=== PATIENT | male | born 1955 | race Two or more races ===

== ENCOUNTER 2018-01-19 09:51 | Inpatient (IN) | payer OTHER ==
[2018-01-16 15:07] VITALS: BP 116/82
[2018-01-16 15:29] LABS: BASOPHILS # (AUTO) 0.02 x10^3/uL (0-0.1); BASOPHILS % (AUTO) 0 % (0-1); EOSINOPHILS # (AUTO) 0.07 x10^3/uL (0-0.4); EOSINOPHILS % (AUTO) 1 % (1-7); LYMPHOCYTES # (AUTO) 1.89 x10^3/uL (1-3.4); LYMPHOCYTES % (AUTO) 35 % (22-44); MD NO; MEAN CORPUSCULAR HEMOGLOBIN 33.9 pg (27.5-34.5); MEAN CORPUSCULAR HGB CONC 34.6 g/dL (33.2-36.2); MEAN CORPUSCULAR VOLUME 98.2 fL (81-97); MEAN PLATELET VOLUME 7.7 fL (7.4-10.4); MONOCYTES # (AUTO) 0.48 x10^3/uL (0.2-0.8); MONOCYTES % (AUTO) 9 % (2-9); NEUTROPHILS % (AUTO) 54 % (42-75); PLATELET COUNT 188 x10^3/uL (130-400); RED BLOOD COUNT 4.55 x10^6/uL (4.38-5.82); RED CELL DISTRIBUTION WIDTH 13.3 % (9.4-14.8)
[2018-01-16 15:38] LABS: ALANINE AMINOTRANSFERASE 136 U/L (12-78); ANION GAP 6 mmol/L (5-15); CALCIUM 8.9 mg/dL (8.5-10.1); CHLORIDE 107 mmol/L (98-107); CREATININE 0.89 mg/dL (0.7-1.3)
[2018-01-16 15:40] LABS: ALKALINE PHOSPHATASE 81 U/L (45-117); BILIRUBIN,TOTAL 0.6 mg/dL (0.2-1.0); TOTAL PROTEIN 7.9 g/dL (6.4-8.2)
[2018-01-16 16:02] LABS: MICROSCOPIC NOT IND
[~2018-01-19] VITALS: Ht 170.2 cm; Wt 69.8 kg
[~2018-01-19 09:51] MED LIST: BUPIVACAINE/PF-EPI 0.25% 1:200K ONE; MULT-658 PO; THROMBIN 5,000 UNIT VIAL TP ONE; lisinopril PO
[2018-01-19] MEDS ORDERED: LACTATED RINGERS 1,000 ML IV SCH (10:19)
[2018-01-19] MEDS ORDERED: OxyconTIN ER 10 MG TAB.ER PO ONE (10:30)
[2018-01-19] MEDS ORDERED: ACETAMINOPHEN 500 MG TABLET PO ONE (10:30)
[2018-01-19] MEDS ORDERED: GABAPENTIN 300 MG CAPSULE PO ONE (10:30)
[2018-01-19] MEDS ORDERED: MIDAZOLAM 1 MG/ML, 2ML ONE (11:58)
[2018-01-19] MEDS ORDERED: FENTANYL PF 250 MCG/5ML ONE (11:59)
[2018-01-19] MEDS ORDERED: EPINEPHRINE 1 MG/ML, 1ML ONE (13:24)
[2018-01-19] MEDS ORDERED: BUPIVACAINE/PF 0.25% ONE ×2 (13:24→13:25)
[2018-01-19] MEDS ORDERED: DEXAMETHASONE 4 MG/ML, 1ML ONE (13:24)
[2018-01-19] MEDS ORDERED: SUCCINYLCHOLINE 20 MG/ML, 10ML ONE (13:24)
[2018-01-19] MEDS ORDERED: PROPOFOL 10 MG/ML, 20ML ONE (13:24)
[2018-01-19] MEDS ORDERED: NEOSTIGMINE 1 MG/ML, 10ML ONE (13:24)
[2018-01-19] MEDS ORDERED: CEFAZOLIN 1,000 MG ONE (13:24)
[2018-01-19] MEDS ORDERED: GLYCOPYRROLATE 0.2MG/1ML, 5ML ONE (13:24)
[2018-01-19] MEDS ORDERED: ROCURONIUM 10MG/ML,5ML ONE (13:24)
[2018-01-19] MEDS ORDERED: ONDANSETRON 2MG/ML, 2ML ONE (13:24)
[2018-01-19] MEDS ORDERED: FENTANYL PF 100 MCG/2ML IV PRN (13:30)
[2018-01-19] MEDS ORDERED: MEPERIDINE/PF 25MG/0.5ML IVPush PRN (13:30)
[2018-01-19] MEDS ORDERED: SCOPOLAMINE PATCH, 1.5MG PATCH.TD72 TD PRN (13:30)
[2018-01-19] MEDS ORDERED: ALBUTEROL/IPRATROPIUM 2.5MG/0.5MG, 3 ML NPPB PRN (13:30)
[2018-01-19] MEDS ORDERED: PROMETHAZINE 25 MG/ML, 1ML IV PRN (13:30)
[2018-01-19] MEDS ORDERED: OXYcodone 5 MG/5 ML ORAL.SOL UDC PO PRN (13:30)
[2018-01-19] MEDS ORDERED: EPHEDRINE 50 MG/ML, 1ML IM PRN (13:30)
[2018-01-19] MEDS ORDERED: ONDANSETRON 2MG/ML, 2ML IV PRN (13:30)
[2018-01-19] MEDS ORDERED: hydrALAzine 20 MG/ML, 1ML IV PRN (13:30)
[2018-01-19] MEDS ORDERED: LABETALOL 5MG/ML, 20ML IV PRN (13:30)
[2018-01-19] MEDS ORDERED: MIDAZOLAM 1 MG/ML, 2ML IV PRN (13:30)
[2018-01-19] MEDS ORDERED: HYDROmorphone 1 MG/ML, 1ML IV PRN (13:30)
[2018-01-19] MEDS ORDERED: FENTANYL PF 100 MCG/2ML ONE (15:37)
[2018-01-19] MEDS: ACETAMINOPHEN 500 MG TABLET PO SCH ×2 (17:51→23:36)
[2018-01-19] MEDS: SODIUM CHLORIDE 0.45% 1,000 ML IV SCH (17:51)
[2018-01-19] MEDS ORDERED: OXYcodone IR 5MG TABLET PO PRN (18:00)
[2018-01-19] MEDS ORDERED: OPIUM/BELLADONNA SUPP.RECT 16.2-30 MG PR PRN (18:00)
[2018-01-19] MEDS ORDERED: LACTATED RINGERS 500 ML IV PRN (18:00)
[2018-01-19] MEDS ORDERED: morphine SULFATE 10 MG/ML, 1ML IV PRN (18:00)
[2018-01-19 19:31] VITALS: BP 128/79
[2018-01-19] MEDS: CEFAZOLIN PMX 1GM/50ML 50 ML IVPB SCH (22:00)
[2018-01-19 23:45] VITALS: BP 114/69
[2018-01-20 01:10] VITALS: BP 108/65
[2018-01-20] MEDS: SODIUM CHLORIDE 0.45% 1,000 ML IV SCH ×2 (01:12→07:52)
[2018-01-20 05:11] LABS: ANION GAP 6 mmol/L (5-15); CALCIUM 7.6 mg/dL (8.5-10.1); CHLORIDE 107 mmol/L (98-107); CREATININE 0.72 mg/dL (0.7-1.3)
[2018-01-20] MEDS: CEFAZOLIN PMX 1GM/50ML 50 ML IVPB SCH (06:06)
[2018-01-20] MEDS: ACETAMINOPHEN 500 MG TABLET PO SCH ×2 (06:06→11:52)
[2018-01-20] MEDS ORDERED: ENOXAPARIN 40 MG/0.4 ML SQ SCH (08:00)
[2018-01-20 08:14] VITALS: BP 123/73
[2018-01-20 15:23] VITALS: BP 105/68
== END 2018-01-20 15:41 | disposition home or self-care (01) | DRG 708 ==
LOC: OUT 09:51 → 4NOR 17:00 → OUT 17:15 → DCLOUNGE 01-20 15:33
PROVIDERS: ADMIT Urology; ATTEND Urology
PROC: 0VT34ZZ Resection of Bilateral Seminal Vesicles, Percutaneous Endoscopic Approach (ICD-10-PCS; 2018-01-19)
PROC: 8E0W4CZ Robotic Assisted Procedure of Trunk Region, Percutaneous Endoscopic Approach (ICD-10-PCS; 2018-01-19)
PROC: 0VT04ZZ Resection of Prostate, Percutaneous Endoscopic Approach (ICD-10-PCS; principal; 2018-01-19 12:00)
DX: C61 Malignant neoplasm of prostate (principal); Z85.46 Personal history of malignant neoplasm of prostate
CPT/HCPCS: 36415; J3490; 80048; 80053; 81003; 85014; 85018; 85025; 86850; 86900; 87086; 88305; 88309; 93005; C1729; J0171; J0690; J1100; J1650; J2250; J2405; J2704; J2710; J3010; C1760; J0330; J7120

== ENCOUNTER → 2018-01-26 | Outpatient (CLI) | payer OTHER ==
[~2018-01-26] MED LIST changes: -BUPIVACAINE/PF-EPI 0.25% 1:200K ONE; -THROMBIN 5,000 UNIT VIAL TP ONE
== END | disposition home or self-care (01) ==
LOC: RAD 12:29
PROVIDERS: ATTEND Urology
DX: C61 Malignant neoplasm of prostate (principal)
CPT/HCPCS: 74430